=== PATIENT | male | born 1985 | race Caucasian/White ===

== ENCOUNTER 2023-11-30 17:00 | Emergency (ER) | payer OTHER, SELFPAY ==
[2023-11-30 17:11] VITALS: BP 152/95
[2023-11-30 17:34] LABS: % Basophils 0.3 % (0-2); % Eosinophils 0.2 % (0-6); % Immature Granulocytes 0.5 % (0-0.5); % Lymphocytes 12.2 % (20.5-51.1); % Monocytes 4.7 % (1.7-9.3); % Neutrophils 82.1 % (42.2-75.2); Absolute Immature Granulocytes 0.1 10^3/uL (0-0.05); Absolute Lymphocytes 1.5 10^3/uL (1.2-3.4); Absolute Monocytes 0.6 10^3/uL (0.1-0.6); Absolute Neutrophils 10.3 10^3/uL (1.4-6.5); Hematocrit 46.3 % (39.0-52.0); Hemoglobin 16.4 g/dL (13.0-18.0); Mean Corp Hgb Conc. 35.4 g/dL (33.0-37.0); Mean Corpuscular Hgb 30.7 pg (27.0-31.0); Mean Corpuscular Volume 86.7 fL (80.0-94.0); Mean Platelet Volume 10.5 fL (7.4-10.4); Nucleated Red Blood Cells % 0 % (-); Platelet Count 268 10^3/uL (130-400); Red Blood Cell Count 5.34 10^6/uL (4.70-6.10); Red Cell Dist. Width 13.1 % (11.5-14.5); White Blood Cell Count 12.6 10^3/uL (4.8-10.8)
[2023-11-30 17:39] LABS: Urine Albumin Negative (Neg - Trace); Urine Bilirubin Negative (Negative); Urine Character Clear (Clear); Urine Color Yellow; Urine Glucose Negative (Negative); Urine Ketone Negative (Negative); Urine Leukocyte Negative (Negative); Urine Nitrite Negative (Negative); Urine Occult Blood Negative (Negative); Urine Urobilinogen Negative (Neg - 1+)
[2023-11-30 17:49] LABS: ALT (SGPT) 63 U/L (0-50); AST (SGOT) 44 U/L (17-59); Alkaline Phosphatase 51 U/L (38-126); Blood Urea Nitrogen 20 mg/dl (9-20); Carbon Dioxide 26 mmol/L (22-30); Chloride 101 mmol/L (98-107); Glucose 118 mg/dl (70-99); Potassium 4.3 mmol/L (3.5-5.1); Sodium 137 mmol/L (135-145); Total Bilirubin 0.7 mg/dl (0.2-1.3); Total Protein 7.8 g/dl (6.3-8.2); eGFR > 60.00
[2023-11-30] MEDS: TORADOL 15 MG IV (19:40)
[2023-11-30] MEDS: NSS 1000 IV (19:47)
--- NOTE | 2023-11-30 20:52 | ED.GENMED ---
Addendum entered and electronically signed by Curt Duarte DO 12/01/23 12:11:
Call from pharmacy apparently Endocet was not transmitted, number ten 5 mg oxycodone sent
Original Note:
History of Present Illness
General
Chief Complaint: Flank Pain
Time Seen by Provider: 11/30/23 19:07
History of Present Illness
History of Present Illness:
38-year-old male without significant past medical history presenting for acute onset of left sided abdominal pain. Patient reports symptoms started this morning and progressed throughout the day. He went to urgent care, was told he had blood in
his urine and likely had a kidney stone. He was administered Toradol and advised to come to the hospital. Pain has worsened. Denies history of kidney stones. Denies any history of abdominal surgeries in the past. Denies urinary complaints,
however does report that he saw some blood in his urine. Denies any chest pain or difficulty breathing. Denies any nausea or vomiting. Denies additional acute medical complaints
Phy Exam
Physical Exam
Physical Exam:
General: Well-appearing, no clinical signs of dehydration, nontoxic and in no acute distress
HEENT: protecting airway
Neck: appears supple
CV: Normal heart rate, regular rhythm, no evidence of cyanosis
Resp: No accessory muscle use, no increased work of breathing, lungs clear to auscultation bilaterally
Abd: Soft and non-distended, no tenderness to palpation, normal bowel sounds
Extremities: No deformities, no swelling, no erythema
Neuro: alert, no focal neurologic deficit
: deferred
Rectal: deferred
Psych: Normal affect
Skin: Intact
Course
Orders/Labs/Results
Orders:
Orders
11/30/23 17:20
Complete Blood Count/With Diff Urgent
Comprehensive Metabolic Panel Urgent
11/30/23 17:24
Urinalysis Reflex To Culture Urgent
Date Specimen was Collected: 11/30/23
Time Specimen was Collected: 17:13
11/30/23 19:21
CT Abd/pelvis Wo Iv Cont Urgent
Comment:
Reason For Exam: LLQ pain, suspected stone
0.9% Sodium Chloride 1000 ml [Nss] 1,000 ml IV BOLUS
Ketorolac [Toradol] 15 mg IV NOW STA
11/30/23 21:36
Morphine Sulfate 4 mg IV NOW STA
11/30/23 22:41
Oxycodone/Acetaminophen [Percocet 5/325] 1 tablet PO NOW STA
Abnormal Lab Results
11/30/23
17:20
WBC 12.6 H 10^3/uL
(4.8-10.8)
MPV 10.5 H fL
(7.4-10.4)
Abs Immat Gran (auto) 0.1 H 10^3/uL
(0-0.05)
Absolute Neuts (auto) 10.3 H 10^3/uL
(1.4-6.5)
Neutrophils % 82.1 H %
(42.2-75.2)
Lymphocytes % 12.2 L %
(20.5-51.1)
Glucose 118 H mg/dl
(70-99)
ALT 63 H U/L
(0-50)
11/30/23 17:20
11/30/23 17:20
Vital Signs
Initial and Last Documented VS:
Initial Vital Signs
Temp Pulse Resp BP Pulse Ox
98.0 F 102 16 152/95 98
11/30/23 17:11 11/30/23 17:11 11/30/23 17:11 11/30/23 17:11 11/30/23 17:11
Last Documented Vital Signs
Temp Pulse Resp BP Pulse Ox
98.0 F 102 16 152/95 98
11/30/23 17:11 11/30/23 17:11 11/30/23 17:11 11/30/23 17:11 11/30/23 17:11
MDM/Problems Addressed
MDM/Problems Addressed:
38-year-old male without significant past medical history presenting for acute onset of left-sided lower abdominal pain. Vital signs on arrival significant for mild hypertension.
On exam, patient well-appearing, no acute distress, slightly uncomfortable secondary to pain. Benign abdominal exam without focal reproducible tenderness, no CVA tenderness. Suspected nephrolithiasis. Plan for laboratory analysis, urinalysis, CT
abdomen pelvis without contrast. Toradol administered for pain.
22:40 -patient CT is consistent with kidney stone, 1 mm stone in the left ureter with mild hydronephrosis. Patient with mild leukocytosis, however no signs of urinary tract infection. Patient afebrile. Pain controlled and patient remains
nontoxic. At this time feel that he is stable for discharge with continued supportive therapy and expectant management. Will provide urology follow-up. Suspect the patient will pass the stone on his own given size. Strict return precautions were
communicated to patient including worsening pain, development of fever, nausea and vomiting with inability to tolerate food or liquid by mouth
*Critical Care Note
Total Time (30-74mins, 75-104mins- exclusive of procedures): Not Applicable
ED Attending Note
-
Portions of this chart may have been created with voice recognition software.� Occasional wrong word or��sound alike� substitutions may have occurred due to the inherent limitations of voice recognition software.
Discharge Plan
Departure
Patient Disposition: Home (Routine Discharge)
Date of Disposition: 11/30/23
Time of Disposition: 22:44
Patient with high blood pressure during this ER visit?: Yes
Condition: Good
Discharge Problem:
Ureterolithiasis, Kidney stone
Instructions: Kidney Stones (DC), How to Strain Your Urine, BLOOD PRESSURE, Narcotic Pain Medication
Prescriptions:
New
oxycodone-acetaminophen [Endocet] 5-325 mg tablet
1 tab PO Q8H PRN (Reason: Pain) Qty: 7 0RF
ibuprofen 600 mg tablet
600 mg PO Q6H PRN (Reason: Pain) 5 Days Qty: 20 0RF
Referrals:
Aureliano Wong MD [Active] - (kidney stone)
Anna Bergeron DO [Family Provider] -
Activity Restrictions/Additional Instructions:
You were seen in the emergency department for abdominal pain
You were found to have a kidney stone
Please follow-up closely with your primary care physician and the urologist.
Return to the emergency department for any worsening of your symptoms, or any development of chest pain, difficulty breathing, difficulty passing her urine, abdominal pain with persistent vomiting and inability to tolerate food or liquid by mouth
(concern for dehydration), weakness, headache or confusion, fever greater than 100.4, or any additional symptoms that are concerning to you.
Thank you for choosing [facility].
Interventions
Interventions:
*Risk Screen - Suicide Last Done: 11/30/23 19:40
*General Assessment Last Done: 11/30/23 19:40
*Neglect/Abuse Screening Last Done: 11/30/23 19:40
*ED COVID-19 Vaccine History Last Done: 11/30/23 19:40
NL-Jlhfrd-Wmvuxffwrg Assessment Last Done: 11/30/23 19:40
ED-Male Genitourinary Assessment Last Done: 11/30/23 19:40
Discharge Date and Time
Print Language: MICRONESIAN
[2023-11-30] MEDS: MORPHINE SULFATE 4 MG IV (21:40)
[2023-11-30] MEDS: PERCOCET 5/325 1 TABLET PO (22:52)
[2023-11-30 23:02] VITALS: BP 142/78
== END 2023-11-30 23:07 | disposition home or self-care (01) ==
LOC: EMR 17:00
PROVIDERS: Emergency Medicine; EMERGENCY PHYSICIAN Student in an Organized Health Care Education/Training Program; FAMILY PHYSICIAN Family Medicine
DX: N20.2 Calculus of kidney with calculus of ureter (principal)
CPT/HCPCS: 99284; 96374; 96375; 96361; 74176; 80053; 81003; 85025

== ENCOUNTER 2023-12-03 01:36 | Emergency (ER) | payer OTHER, SELFPAY ==
[2023-12-03 01:38] VITALS: BP 158/105
[2023-12-03 01:58] VITALS: BMI 40.0
[2023-12-03 02:00] VITALS: BP 146/91
--- NOTE | 2023-12-03 02:09 | ED.GENMED ---
History of Present Illness
General
Chief Complaint: Flank Pain
Source: patient, previous radiology exam (CT abdomen pelvis November 30, 2023) and previous hospital records (ED visit November 29 for similar complaint. Found to have 1 mm stone mid to distal left ureter with minor hydronephrosis.)
Exam Limitations: none
Time Seen by Provider: 12/03/23 01:48
Nursing documentation reviewed up to this point in time: agreed with
History of Present Illness
History of Present Illness:
This is a 38-year-old obese gentleman who has no significant past medical history who was evaluated in this ED November 29 with complaints of left lower quadrant pain. CT abdomen pelvis showed a 1 mm stone mid to distal left ureter with minor
hydronephrosis. Prior to that visit no prior history of kidney stones.
Pain relieved after an IV dose of Toradol and morphine.
He was discharged to home with a prescription for oxycodone 5 mg. Had been feeling relatively well until this evening when pain returned yesterday early evening, unrelieved after dose of ibuprofen 600 mg around 6 PM, unrelieved after dose of
oxycodone at 7:30 PM and then again at 8:30 PM. He states he was able to fall asleep briefly but then awoke with persistent recurrent pain left lower quadrant, nonradiating. He denies nausea or vomiting, denies fevers or chills. Denies groin nor
testicular pain.
He does work outdoors in the hot/humid weather but has been attempting to keep up with his fluids on a daily basis. He has had no dysuria no urgency nor gross hematuria.
At last visit on the he was referred to urology. Has not placed a call to urologist as yet.
Past History
Past History
ED Past Medical History: Other (Kidney stones)
ED Past Surgical History: None
Social History
Tobacco: Non-smoker
Alcohol: Occasional
Personal: Single
Living: alone
Employment: Employed
Family History
Family History: Other (Noncontributory)
Phy Exam
Physical Exam
Physical Exam:
GENERAL: 38-year-old male appears his stated age, awake and alert, pleasant, appears in no acute distress. Afebrile. Moderately hypertensive. Resting comfortably on stretcher.
EYE: anicteric
NECK: Supple, nontender, no meningismus, no significant adenopathy.
ENT: oral mucosa is moist. No rhinorrhea.
CARDIAC: Regular rate and rhythm. no murmur.
LUNGS: Clear breath sounds bilaterally, no acute respiratory distress, no wheezes/rales/rhonchi
ABDOMEN: Rotund, soft, nondistended, minimal tenderness left lower quadrant with deep palpation only, no r/g, no cvat. normoactive BS. No inguinal tenderness nor palpable masses.
NEUROLOGICAL: Alert and oriented x3, no focal neuro deficits. Gait is oconnor and steady.
SKIN: Warm and dry, normal color, skin intact. No rash.
MUSCULOSKELETAL: No C/C/E. peripheral pulses are full and equal b/l. No palpable tenderness.
PSYCH: Normal and appropriate interaction.
Course
Orders/Labs/Results
Orders:
Orders
12/03/23 02:13
0.9% Sodium Chloride 1000 ml [Nss] 1,000 ml IV BOLUS
Ketorolac [Toradol] 30 mg IV NOW STA
Tamsulosin [Flomax] 0.4 mg PO NOW STA
12/03/23 02:14
Basic Metabolic Panel Urgent
Complete Blood Count/With Diff Urgent
Renal & Bladder US [US Renal With Bladder] Urgent
Comment:
Reason For Exam: LLQ pain, known 1 mm stone mid/distal L ureter
Abnormal Lab Results
12/03/23
02:14
MPV 10.5 H fL
(7.4-10.4)
Absolute Neuts (auto) 6.8 H 10^3/uL
(1.4-6.5)
Absolute Monos (auto) 0.8 H 10^3/uL
(0.1-0.6)
Lymphocytes % 18.4 L %
(20.5-51.1)
BUN 23 H mg/dl
(9-20)
Creatinine 1.6 H mg/dL
(0.7-1.3)
Glucose 109 H mg/dl
(70-99)
12/03/23 02:14
12/03/23 02:14
Vital Signs
Initial and Last Documented VS:
Initial Vital Signs
Temp Pulse Resp BP Pulse Ox
98.8 F 89 20 158/105 98
12/03/23 01:38 12/03/23 01:38 12/03/23 01:38 12/03/23 01:38 12/03/23 01:38
Last Documented Vital Signs
Temp Pulse Resp BP Pulse Ox
98.1 F 76 18 132/62 95
12/03/23 03:36 12/03/23 04:00 12/03/23 04:00 12/03/23 04:00 12/03/23 04:00
MDM/Problems Addressed
Differential Diagnosis Includes:
Patient has known 1 mm stone left mid to distal ureter with minor hydronephrosis noted on CAT scan November 29.
Returns with recurrent pain very similar in nature that prompted ED visit 3 days ago.
Thus far no improvement in pain after 2 doses of oxycodone 5 mg yesterday evening.
He has been taking ibuprofen, last dose at 6 PM.
He has not had a fever, no dysuria, no flank pain. Nothing to suggest UTI/pyelonephritis. Urinalysis on the was crystal-clear.
Laboratory studies on the showed mildly elevated white blood cell count of 12.6, top normal creatinine of 1.3.
Will recheck CBC, BMP.
Will plan for renal ultrasound with bladder assess for degree of hydronephrosis/obstruction.
Will initiate IV fluids, trial an oral dose of Flomax and an IV dose of Toradol.
CT September 29 showed incidental minor diverticulosis but no evidence of acute diverticulitis. No bowel obstruction. As pain has been intermittent and patient was fairly pain-free until this evening, acute diverticulitis is unlikely.
Note of cholelithiasis. He continues to have no epigastric nor right upper quadrant pain.
Hepatomegaly with fatty infiltration.
Small but stable stable pulmonary nodules supporting a benign etiology.
*Radiology
Radiology exam reviewed: radiology read reviewed
*Pulse Oximetry
Patient hypoxic: no
*Critical Care Note
Total Time (30-74mins, 75-104mins- exclusive of procedures): Not Applicable
Update Note
Update Note:
12/03/2023 0428 AM
Patient is pain-free and comfortable after 1 IV dose of Toradol and an oral dose of Flomax.
Labs show resolution of leukocytosis but mild uptrend in creatinine from 1.3 to now 1.6.
Renal ultrasound shows resolution of left-sided hydronephrosis. No shadowing stones identified. Unremarkable bladder and bilateral ureteral jets are visualized.
As ureteral jets visualized bilaterally, no evidence of left ureteral obstruction and I suspect this is related to recently passed stone versus tiny nonobstructing stone in the ureter.
Due to uptrend in creatinine recommend he discontinue ibuprofen and otherwise stay well-hydrated on a daily basis.
Will add a short course of Flomax for potential nonobstructing ureteral stone. If pain recurs recommend he continue oxycodone and if pain does recur encouraged to follow-up with urology.
ED Attending Note
-
Portions of this chart may have been created with voice recognition software.� Occasional wrong word or��sound alike� substitutions may have occurred due to the inherent limitations of voice recognition software.
Discharge Plan
Departure
Patient Disposition: Home (Routine Discharge)
Date of Disposition: 12/03/23
Time of Disposition: 04:30
Patient with high blood pressure during this ER visit?: No
Condition: Good
Discharge Problem:
Renal colic on left side
Instructions: Renal Colic (DC), How to Strain Your Urine
Prescriptions:
New
tamsulosin [Flomax] 0.4 mg Capsule
0.4 mg PO HS Qty: 7 0RF
No Action
oxycodone-acetaminophen [Endocet] 5-325 mg tablet
1 tab PO Q8H PRN (Reason: Pain) Qty: 7 0RF
ibuprofen 600 mg tablet
600 mg PO Q6H PRN (Reason: Pain) 5 Days Qty: 20 0RF
oxycodone 5 mg tablet
5 mg PO Q4H PRN (Reason: Pain) Qty: 10 0RF
Referrals:
Aureliano Wong MD [Active] - Call in 1-3 days for appt
Anna Bergeron DO [Family Provider] -
Interventions
Interventions:
*Risk Screen - Suicide Last Done: 12/03/23 01:38
*General Assessment Last Done: 12/03/23 01:38
*Neglect/Abuse Screening Last Done: 12/03/23 01:38
ED- Fall Risk Assessment Last Done: 12/03/23 01:38
*ED COVID-19 Vaccine History Last Done: 12/03/23 01:38
PK-Ocgxaz-Zmxzguedfq Assessment Last Done: 12/03/23 02:00
ED-Male Genitourinary Assessment Last Done: 12/03/23 02:00
Discharge Date and Time
Print Language: LATVIAN
[2023-12-03 02:20] LABS: % Basophils 0.5 % (0-2); % Immature Granulocytes 0.4 % (0-0.5); % Lymphocytes 18.4 % (20.5-51.1); % Monocytes 8.7 % (1.7-9.3); Absolute Basophils 0.1 10^3/uL (0-0.2); Absolute Eosinophils 0.2 10^3/uL (0-0.7); Absolute Lymphocytes 1.8 10^3/uL (1.2-3.4); Absolute Monocytes 0.8 10^3/uL (0.1-0.6); Absolute Neutrophils 6.8 10^3/uL (1.4-6.5); Hematocrit 42.1 % (39.0-52.0); Mean Corp Hgb Conc. 35.6 g/dL (33.0-37.0); Mean Corpuscular Hgb 30.2 pg (27.0-31.0); Mean Corpuscular Volume 84.7 fL (80.0-94.0); Mean Platelet Volume 10.5 fL (7.4-10.4); Nucleated Red Blood Cells % 0 % (-); Platelet Count 220 10^3/uL (130-400); Red Blood Cell Count 4.97 10^6/uL (4.70-6.10); Red Cell Dist. Width 13.2 % (11.5-14.5); White Blood Cell Count 9.6 10^3/uL (4.8-10.8)
[2023-12-03] MEDS: TORADOL 30 MG IV (02:22)
[2023-12-03] MEDS: NSS 1000 IV (02:22)
[2023-12-03] MEDS: FLOMAX 0.4 MG PO (02:23)
[2023-12-03 02:44] LABS: Blood Urea Nitrogen 23 mg/dl (9-20); Calcium 9.2 mg/dl (8.4-10.2); Carbon Dioxide 26 mmol/L (22-30); Chloride 104 mmol/L (98-107); Estimated Creatinine Clearance 89 ml/min; Glucose 109 mg/dl (70-99); Potassium 4.2 mmol/L (3.5-5.1); Sodium 139 mmol/L (135-145); eGFR 56.56
[2023-12-03 03:36] VITALS: BP 140/84
[2023-12-03 04:00] VITALS: BP 132/62
== END 2023-12-03 04:37 | disposition home or self-care (01) ==
LOC: EMR 01:36
PROVIDERS: EMERGENCY PHYSICIAN Emergency Medicine; FAMILY PHYSICIAN Family Medicine
DX: N13.2 Hydronephrosis with renal and ureteral calculous obstruction (principal); Z87.442 Personal history of urinary calculi; E66.9 Obesity, unspecified
CPT/HCPCS: 99284; 96374; 96361; 76770; 80048; 85025